=== PATIENT | female | born 1945 | race Caucasian/White ===

== ENCOUNTER 2016-10-31 17:09 | Emergency (ER) | payer OTHER ==
[~2016-10-31] VITALS: Ht 162.6 cm; Wt 104.3 kg
[2016-10-31 18:14] LABS: Basophils # (auto) 0 uL; Basophils % (auto) 0.3 % (0.0-2.0); Eosinophils # (auto) 0.1 uL; Eosinophils % (auto) 2.6 % (0.0-7.0); Hematocrit 36.2 % (36.0-46.0); Hemoglobin 11.8 g/dL (12.2-16.2); Lymphocytes # (auto) 1.8 uL; Lymphocytes % (auto) 32.6 % (10.0-50.0); Mean Corpuscular Hemoglobin 28.4 pg (28.0-32.0); Mean Corpuscular Hgb Conc. 32.7 g/dL (32.0-36.0); Mean Corpuscular Volume 86.8 fL (80.0-100.0); Monocytes # (auto) 0.4 uL; Monocytes % (auto) 7.7 % (0.0-12.0); Neutrophils # (auto) 3.2 uL; Neutrophils % (auto) 56.8 % (37.0-80.0); Platelet Count (auto) 257 10^3/uL (140-450); Red Cell Distribution Width 13.2 % (11.6-16.0); White Blood Cell 5.7 10^3/uL (4.4-10.8)
[2016-10-31 18:41] LABS: Albumin 3.7 g/dL (3.4-5.0); BUN/Creatinine Ratio 18.8; Bilirubin, Total 0.4 mg/dL (0.2-1.0); Potassium 4.1 mmol/L (3.5-5.1)
[2016-11-01] MEDS ORDERED: ONDANSETRON HCL 4 MG/2 ML VIAL IV ONE (03:00)
[2016-11-01] MEDS ORDERED: HYDROmorphone HCL 2 MG/ML VL IV ONE (03:00)
[2016-11-01 06:27] VITALS: BP 115/74
== END 2016-11-01 08:08 | disposition home or self-care (01) ==
LOC: ER 17:09
DX: M54.5 Low back pain (principal); M25.551 Pain in right hip; R51 Headache; I10 Essential (primary) hypertension; R53.1 Weakness; G89.29 Other chronic pain; Z88.1 Allergy status to other antibiotic agents; Z88.0 Allergy status to penicillin; Z91.81 History of falling; Z86.73 Personal history of transient ischemic attack (TIA), and cerebral infarction without residual deficits; W18.39XA Other fall on same level, initial encounter; Y93.89 Activity, other specified; Y99.8 Other external cause status; Y92.89 Other specified places as the place of occurrence of the external cause
CPT/HCPCS: 36415; 70450; 72131; 80053; 84484; 85025; 93005; 96374; 96375; 99285; J1170; J2405

== ENCOUNTER 2017-08-04 17:41 | Emergency (ER) | payer OTHER ==
[~2017-08-04] VITALS: Ht 160 cm; Wt 100.2 kg
[2017-08-04 21:55] LABS: Basophils # (auto) 0 uL; Basophils % (auto) 0.6 % (0.0-2.0); Eosinophils # (auto) 0.2 uL; Hematocrit 38.7 % (36.0-46.0); Hemoglobin 13.3 g/dL (12.2-16.2); Lymphocytes # (auto) 1.7 uL; Lymphocytes % (auto) 32.1 % (10.0-50.0); Mean Corpuscular Hemoglobin 29.3 pg (28.0-32.0); Mean Corpuscular Hgb Conc. 34.2 g/dL (32.0-36.0); Mean Corpuscular Volume 85.5 fL (80.0-100.0); Mean Platelet Volume 6.8 fL (6.9-10.8); Monocytes # (auto) 0.4 uL; Monocytes % (auto) 8.6 % (0.0-12.0); Neutrophils # (auto) 2.9 uL; Neutrophils % (auto) 55.7 % (37.0-80.0); Nucleated Red Blood Cells % 0.1 %; Platelet Count (auto) 254 10^3/uL (140-450); Red Cell Distribution Width 13.2 % (11.8-14.3); White Blood Cell 5.2 10^3/uL (4.4-10.8)
[2017-08-04 22:31] LABS: Albumin 3.5 g/dL (3.4-5.0); Anion Gap 8 (5-15); Aspartate Aminotransferase 20 U/L (15-37); BUN/Creatinine Ratio 20.3; Blood Urea Nitrogen 15 mg/dL (7-18); Carbon Dioxide 28 mmol/L (21-32); Chloride 103 mmol/L (98-107); GFR African American 99 mL/min; GFR Non-African American 82 mL/min; Glucose 94 mg/dL (74-106); Potassium 4.1 mmol/L (3.5-5.1); Sodium 139 mmol/L (136-145)
[2017-08-04 22:36] LABS: Alkaline Phosphatase 74 U/L (45-117); Bilirubin, Total 0.5 mg/dL (0.2-1.0); Total Protein 7.9 g/dL (6.4-8.2)
[2017-08-04 22:44] LABS: B-Type Natriuretic Peptide 36.88 pg/mL (0-100)
[2017-08-04 22:51] LABS: Temperature: 22.9 C (20.0-25.0)
[2017-08-05] MEDS ORDERED: IPRATROPIUM BROM 0.5 MG/2.5ML INH SOL NEB ONE (01:30)
[2017-08-05] MEDS ORDERED: ALBUTEROL SULF 2.5 MG/0.5ML(0.5%) NEB SOLN NEB ONE (01:30)
[2017-08-05] MEDS ORDERED: methylPREDNISolone SOD SUCC 125 MG/2 ML VL IM ONE (01:30)
[2017-08-05 01:45] VITALS: BP 133/82
== END 2017-08-05 01:59 | disposition home or self-care (01) ==
LOC: ER 17:41
DX: J40 Bronchitis, not specified as acute or chronic (principal); K21.9 Gastro-esophageal reflux disease without esophagitis; I10 Essential (primary) hypertension; Z86.73 Personal history of transient ischemic attack (TIA), and cerebral infarction without residual deficits
CPT/HCPCS: 36415; 71020; 71250; 80053; 83880; 84484; 85025; 85379; 93005; 94640; 96372; 99285; J2930

== ENCOUNTER 2022-01-11 15:48 | Inpatient (IN) | payer OTHER, MEDICAID ==
[~2022-01-11] VITALS: Ht 160 cm; Wt 95.6 kg
[2022-01-11 17:06] LABS: Basophils # (auto) 0 10 ^3/uL (0-0.2); Basophils % (auto) 0.5 % (0.0-2.0); Eosinophils # (auto) 0.1 10 ^3/uL (0-0.8); Eosinophils % (auto) 1.8 % (0.0-7.0); Hematocrit 36.9 % (36.0-46.0); Hemoglobin 12.5 g/dL (12.2-16.2); Lymphocytes # (auto) 1.1 10 ^3/uL (0.4-5.4); Lymphocytes % (auto) 16.1 % (10.0-50.0); Mean Corpuscular Hemoglobin 28.3 pg (28.0-32.0); Mean Corpuscular Hgb Conc. 33.8 g/dL (32.0-36.0); Mean Corpuscular Volume 83.8 fL (80.0-100.0); Monocytes # (auto) 0.3 10 ^3/uL (0-1.3); Monocytes % (auto) 3.6 % (0.0-12.0); Neutrophils # (auto) 5.5 10 ^3/uL (1.6-8.6); Red Cell Distribution Width 13.7 % (11.8-14.3)
[2022-01-11 17:23] LABS: Albumin 3.1 g/dL (3.4-5.0); BUN/Creatinine Ratio 28.4; Calcium 9.1 mg/dL (8.5-10.1); Potassium 3.9 mmol/L (3.5-5.1)
[2022-01-11 17:26] LABS: Bilirubin, Total 0.4 mg/dL (0.2-1.0); Total Protein 6.8 g/dL (6.4-8.2)
[2022-01-11 17:27] LABS: INR 1.08 (0.9-1.15); Partial Thromboplastin Time 28.5 sec (23.6-33.0)
[2022-01-11] MEDS ORDERED: ONDANSETRON HCL 4 MG/2 ML VIAL IV PRN (21:00)
[2022-01-11] MEDS ORDERED: ACETAMINOPHEN 325 MG TAB PO PRN (21:00)
[2022-01-11 21:03] LABS: Urine Bacteria FEW /hpf (None Seen); Urine Blood 1+ /uL (Negative); Urine Specific Gravity 1.019 (1.001-1.035); Urine WBC 367 /hpf (0 - 5); Urine WBC Clumps PRESENT /hpf (None Seen)
[2022-01-11 22:00] VITALS: BP 114/67
[2022-01-11] MEDS: HYDROcodone-ACET 5/325MG TAB PO PRN (22:51)
[2022-01-12] VITALS (7 sets, daily range): BP systolic 114–151; BP diastolic 45–70
[2022-01-12] MEDS: busPIRone HCL 10 MG TAB PO SCH ×3 (01:45→21:53)
[2022-01-12] MEDS: SULFAMETHOX W/TRIMETH(800/160MG) DS TAB PO SCH ×3 (01:45→21:52)
[2022-01-12] MEDS: ATORVASTATIN 20 MG TAB PO SCH ×2 (01:46→21:53)
[2022-01-12] MEDS: GABAPENTIN 300 MG CAP PO SCH ×4 (01:47→21:53)
[2022-01-12] MEDS: HYDROcodone-ACET 5/325MG TAB PO PRN ×3 (01:50→21:53)
[2022-01-12] MEDS ORDERED: HYDR-4798 PO (06:27)
[2022-01-12] MEDS ORDERED: ACET-1156 PO (06:27)
[2022-01-12] MEDS: ENOXAPARIN SOD 40 MG/0.4 ML SYRINGE SC SCH (09:51)
[2022-01-12] MEDS: SERTRALINE HCL 50 MG TAB PO SCH (09:51)
[2022-01-12] MEDS: FUROSEMIDE 20 MG TAB PO SCH (09:52)
[2022-01-12] MEDS: CLOPIDOGREL BISULFATE 75 MG TAB PO SCH (09:52)
[2022-01-12] MEDS ORDERED: PNEUMOCOCCAL VACC POLYS 25 MCG/0.5 ML VIAL IM ONE (10:00)
[2022-01-12] MEDS ORDERED: INFLUENZA QUAD 2021-2022 0.5 ML SYRG IM ONE (10:00)
[2022-01-12] MEDS: PANTOPRAZOLE 40 MG TAB PO SCH (12:21)
[2022-01-12] MEDS: ATENOLOL 50 MG TAB PO SCH (14:31)
[2022-01-12] MEDS ORDERED: SULF400T11 PO (17:20)
[2022-01-12] MEDS ORDERED: ATEN50TA PO (17:23)
[2022-01-12] MEDS ORDERED: GABA300C10 PO (17:23)
[2022-01-12] MEDS ORDERED: ATOR20TA50 PO (17:23)
[2022-01-12] MEDS ORDERED: CLOP75TA28 PO (17:23)
[2022-01-12] MEDS ORDERED: FURO1TAB33 PO (17:23)
[2022-01-12] MEDS ORDERED: SERT50TA PO (17:23)
[2022-01-13 05:00] VITALS: BP 108/75
[2022-01-13] MEDS: GABAPENTIN 300 MG CAP PO SCH (06:28)
[2022-01-13] MEDS: HYDROcodone-ACET 5/325MG TAB PO PRN ×2 (06:28→10:47)
[2022-01-13 09:00] VITALS: BP_SYST 117; BP_SYST 129; BP_DIAS 72; BP_DIAS 80
[2022-01-13] MEDS: PANTOPRAZOLE 40 MG TAB PO SCH (09:56)
[2022-01-13] MEDS: ENOXAPARIN SOD 40 MG/0.4 ML SYRINGE SC SCH (09:56)
[2022-01-13] MEDS: SULFAMETHOX W/TRIMETH(800/160MG) DS TAB PO SCH (09:57)
[2022-01-13] MEDS: busPIRone HCL 10 MG TAB PO SCH (09:58)
[2022-01-13] MEDS: ATENOLOL 50 MG TAB PO SCH (09:59)
[2022-01-13] MEDS: CLOPIDOGREL BISULFATE 75 MG TAB PO SCH (09:59)
[2022-01-13] MEDS: FUROSEMIDE 20 MG TAB PO SCH (09:59)
[2022-01-13] MEDS: SERTRALINE HCL 50 MG TAB PO SCH (10:00)
[2022-01-13 12:24] VITALS: BP 129/80
== END 2022-01-13 15:04 | disposition home health service (06) | DRG 699 ==
LOC: ER 15:48 → EDBD 15:48 → OVERFLOW 20:53 → WEST WING 22:00
PROVIDERS: ADMIT Nurse Practitioner; ATTEND Nurse Practitioner
DX: T83.091A Other mechanical complication of indwelling urethral catheter, initial encounter (principal); N39.0 Urinary tract infection, site not specified; E44.0 Moderate protein-calorie malnutrition; I10 Essential (primary) hypertension; K21.9 Gastro-esophageal reflux disease without esophagitis; R53.81 Other malaise; Z20.822 Contact with and (suspected) exposure to COVID-19; Y83.8 Other surgical procedures as the cause of abnormal reaction of the patient, or of later complication, without mention of misadventure at the time of the procedure; Z74.01 Bed confinement status; Z86.73 Personal history of transient ischemic attack (TIA), and cerebral infarction without residual deficits; I25.2 Old myocardial infarction; Z88.1 Allergy status to other antibiotic agents; Z88.0 Allergy status to penicillin; Y92.89 Other specified places as the place of occurrence of the external cause; Z68.35 Body mass index [BMI] 35.0-35.9, adult
CPT/HCPCS: 36415; 51702; 71045; 80053; 81001; 83880; 84484; 85025; 85610; 85730; 87086; 87088; 87186; G0378; J2405

== ENCOUNTER 2022-01-26 15:13 | Emergency (ER) | payer OTHER, MEDICAID ==
[~2022-01-26] VITALS: Ht 162.6 cm; Wt 89.8 kg
[~2022-01-26 15:13] MED LIST: ACET-1156 PO; ATEN50TA PO; ATOR20TA50 PO; CLOP75TA28 PO; FURO1TAB33 PO; GABA300C10 PO; HYDR-4798 PO; SERT50TA PO; SULF400T11 PO
[2022-01-26 16:07] LABS: Basophils # (auto) 0 10 ^3/uL (0-0.2); Basophils % (auto) 0.4 % (0.0-2.0); Eosinophils # (auto) 0.1 10 ^3/uL (0-0.8); Eosinophils % (auto) 1.6 % (0.0-7.0); Hematocrit 37.6 % (36.0-46.0); Hemoglobin 12.9 g/dL (12.2-16.2); Lymphocytes # (auto) 1.3 10 ^3/uL (0.4-5.4); Mean Corpuscular Hemoglobin 28.3 pg (28.0-32.0); Mean Corpuscular Hgb Conc. 34.3 g/dL (32.0-36.0); Mean Corpuscular Volume 82.6 fL (80.0-100.0); Monocytes # (auto) 0.3 10 ^3/uL (0-1.3); Monocytes % (auto) 4.1 % (0.0-12.0); Neutrophils # (auto) 5.4 10 ^3/uL (1.6-8.6); Neutrophils % (auto) 75.9 % (37.0-80.0); Nucleated Red Blood Cells % 0.1 %; Red Blood Cells 4.56 10^6/uL (4.0-5.20); White Blood Cell 7.1 10^3/uL (4.4-10.8)
[2022-01-26] MEDS ORDERED: VANCOMYCIN HCL 125MG/5ML ORAL SOL PO ONE (16:15)
[2022-01-26 16:19] LABS: Albumin 3.4 g/dL (3.4-5.0); BUN/Creatinine Ratio 20.3; Calcium 9.1 mg/dL (8.5-10.1); Potassium 4.1 mmol/L (3.5-5.1)
[2022-01-26 16:21] LABS: Bilirubin, Total 0.4 mg/dL (0.2-1.0); Total Protein 7.3 g/dL (6.4-8.2)
[2022-01-26] MEDS ORDERED: VANC250PO PO (17:55)
[2022-01-26 18:40] LABS: Urine Bacteria MANY /hpf (None Seen); Urine Blood TRACE /uL (Negative); Urine Mucus FEW (None Seen); Urine Specific Gravity 1.016 (1.001-1.035); Urine WBC 187 /hpf (0 - 5)
[2022-01-26] MEDS ORDERED: ACETAMINOPHEN 325 MG TAB PO ONE (21:15)
[2022-01-27] MEDS ORDERED: HYDROcodone-ACET 10/325MG TAB PO ONE (01:15)
[2022-01-27] MEDS ORDERED: ONDANSETRON ODT 4 MG TAB PO ONE (10:00)
[2022-01-28] MEDS ORDERED: cloNIDine HCL 0.1 MG TAB PO ONE (04:15)
[2022-01-28] MEDS ORDERED: VANCOMYCIN HCL 125MG/5ML ORAL SOL GT ONE (04:15)
[2022-01-28] MEDS ORDERED: HYDROcodone-ACET 10/325MG TAB PO ONE (04:15)
[2022-01-28] MEDS ORDERED: ONDANSETRON ODT 4 MG TAB PO ONE ×3 (04:33→18:15)
[2022-01-28] MEDS ORDERED: cloNIDine HCL 0.1 MG TAB ONE (04:33)
[2022-01-28] MEDS ORDERED: HYDROcodone-ACET 10/325MG TAB ONE (04:35)
[2022-01-28] MEDS ORDERED: HYDROcodone-ACET 5/325MG TAB PO ONE (17:30)
[2022-01-28] MEDS: ONDANSETRON ODT 4 MG TAB PO ONE (17:30)
[2022-01-28] MEDS ORDERED: HYDROcodone-ACET 5/325MG TAB ONE (18:15)
[2022-01-28 20:00] VITALS: BP 143/71
== END 2022-01-26 18:08 | disposition home or self-care (01) ==
LOC: ER 15:13 → EDBD 15:13 → ER 18:08
DX: N39.0 Urinary tract infection, site not specified (principal); R31.9 Hematuria, unspecified; I10 Essential (primary) hypertension; I25.2 Old myocardial infarction; K21.9 Gastro-esophageal reflux disease without esophagitis; Z86.73 Personal history of transient ischemic attack (TIA), and cerebral infarction without residual deficits; Z79.899 Other long term (current) drug therapy; Z88.0 Allergy status to penicillin; Z88.1 Allergy status to other antibiotic agents; Z88.8 Allergy status to other drugs, medicaments and biological substances
CPT/HCPCS: 36415; 80053; 81001; 85025; 87086; 87088; 87186; 99285; J3370